=== PATIENT | female | born 1975 | race Two or more races ===

== ENCOUNTER 2018-12-25 11:09 | Emergency (ER) | payer MEDICAID ==
[~2018-12-25] VITALS: Ht 167.6 cm; Wt 82.6 kg
[~2018-12-25 11:09] MED LIST: ALBUAER3 IN; ALBUPOW26 XX; AZITTAB11 PO; PRED-188 PO; PREN-129 PO
[2018-12-25 11:30] VITALS: BP 120/75
[2018-12-25] MEDS ORDERED: HYDROcodone-ACET 7.5/325MG TAB PO ONE (13:00)
== END 2018-12-25 13:47 | disposition home or self-care (01) ==
LOC: ER 11:09
DX: S22.41XA Multiple fractures of ribs, right side, initial encounter for closed fracture (principal); J45.909 Unspecified asthma, uncomplicated; K21.9 Gastro-esophageal reflux disease without esophagitis; E78.5 Hyperlipidemia, unspecified; Z88.8 Allergy status to other drugs, medicaments and biological substances; Z79.899 Other long term (current) drug therapy; V49.59XA Passenger injured in collision with other motor vehicles in traffic accident, initial encounter; Y93.89 Activity, other specified; Y99.8 Other external cause status; Y92.89 Other specified places as the place of occurrence of the external cause
CPT/HCPCS: 71101

== ENCOUNTER 2020-11-11 22:01 | Emergency (ER) | payer MEDICAID ==
[~2020-11-11] VITALS: Ht 167.6 cm; Wt 85.7 kg
[2020-11-11 23:00] VITALS: BP 131/85
== END 2020-11-11 23:59 | disposition home or self-care (01) ==
LOC: ER 22:06
DX: U07.1 COVID-19 (principal); M54.9 Dorsalgia, unspecified; R53.1 Weakness; J45.909 Unspecified asthma, uncomplicated; E78.5 Hyperlipidemia, unspecified
CPT/HCPCS: 36415; 71045; 87426

== ENCOUNTER → 2023-08-24 | Outpatient (CLI) | payer MEDICAID ==
[2023-08-24 09:25] LABS: Urine Bacteria FEW /hpf (None Seen); Urine Blood TRACE /uL (Negative); Urine Clarity Turbid (Clear); Urine Color Light-Yellow (Yellow); Urine Mucus FEW (None Seen); Urine Protein, UAD Negative (Negative); Urine Specific Gravity 1.016 (1.001-1.035); Urine Urobilinogen Normal (Negative); Urine WBC 1 /hpf (0 - 5)
== END | disposition home or self-care (01) ==
LOC: LAB 09:14
PROVIDERS: ATTEND Internal Medicine
DX: R82.90 Unspecified abnormal findings in urine (principal)
CPT/HCPCS: 81001

== ENCOUNTER → 2023-12-01 | Outpatient (CLI) | payer MEDICAID ==
[2023-12-01 08:37] LABS: Urine Bacteria None Seen /hpf (None Seen)
[2023-12-01 08:45] LABS: Basophils # (auto) 0 10 ^3/uL (0-0.2); Basophils % (auto) 0.5 % (0.0-2.0); Eosinophils # (auto) 0.3 10 ^3/uL (0-0.8); Eosinophils % (auto) 3.5 % (0.0-7.0); Hematocrit 36.5 % (36.0-46.0); Hemoglobin 12.6 g/dL (12.2-16.2); Lymphocytes % (auto) 40.1 % (10.0-50.0); Mean Corpuscular Hemoglobin 31.5 pg (28.0-32.0); Mean Corpuscular Hgb Conc. 34.4 g/dL (32.0-36.0); Mean Corpuscular Volume 91.6 fL (80.0-100.0); Monocytes # (auto) 0.5 10 ^3/uL (0-1.3); Monocytes % (auto) 7.2 % (0.0-12.0); Neutrophils # (auto) 3.6 10 ^3/uL (1.6-8.6); Neutrophils % (auto) 48.7 % (37.0-80.0); Nucleated Red Blood Cells % 0.1 %; Platelet Count (auto) 326 10^3/uL (140-450); Red Blood Cells 3.99 10^6/uL (4.0-5.20); Red Cell Distribution Width 13.3 % (11.8-14.3); White Blood Cell 7.4 10^3/uL (4.4-10.8)
[2023-12-01 09:10] LABS: Alanine Aminotransferase 40 U/L (7-40); Albumin 4.2 g/dL (3.2-4.8); Alkaline Phosphatase 107 U/L (46-116); Anion Gap 6 (5-15); Aspartate Aminotransferase 19 U/L (13-40); Blood Urea Nitrogen 10 mg/dL (9-23); Calcium 9.4 mg/dL (8.7-10.4); Carbon Dioxide 27 mmol/L (20-30); Chloride 107 mmol/L (98-107); Cholesterol 253 mg/dL (< 200); Glucose 106 mg/dL (74-106); Potassium 3.9 mmol/L (3.5-5.1); Sodium 140 mmol/L (136-145); Triglycerides 500 mg/dL (< 150)
[2023-12-01 09:11] LABS: Bilirubin, Total 0.7 mg/dL (0.2-1.0); HDL Cholesterol 34 mg/dL (40-59); Total Protein 7.3 g/dL (5.7-8.2)
[2023-12-01 09:14] LABS: Urine Blood TRACE /uL (Negative); Urine Clarity Turbid (Clear); Urine Color Light-Yellow (Yellow); Urine Protein, UAD Negative (Negative); Urine Specific Gravity 1.015 (1.001-1.035); Urine Urobilinogen Normal (Negative); Urine WBC 1 /hpf (0 - 5); Urine pH 5.5 (5.0-9.0)
== END | disposition home or self-care (01) ==
LOC: LAB 08:29
PROVIDERS: ATTEND Internal Medicine
DX: Z00.01 Encounter for general adult medical examination with abnormal findings (principal); E55.9 Vitamin D deficiency, unspecified; R73.03 Prediabetes; R82.90 Unspecified abnormal findings in urine; E78.2 Mixed hyperlipidemia
CPT/HCPCS: 36415; 80053; 80061; 81001; 82306; 83036; 84439; 84443; 85025

== ENCOUNTER → 2024-02-02 | Outpatient (CLI) | payer MEDICAID ==
[2024-02-02 11:10] LABS: Urine Bacteria None Seen /hpf (None Seen)
[2024-02-02 11:36] LABS: Urine Blood Negative /uL (Negative); Urine Clarity Clear (Clear); Urine Color Light-Yellow (Yellow); Urine Protein, UAD Negative (Negative); Urine Specific Gravity 1.012 (1.001-1.035); Urine Urobilinogen Normal (Negative); Urine WBC 1 /hpf (0 - 5)
== END | disposition home or self-care (01) ==
LOC: LAB 11:08
PROVIDERS: ATTEND Internal Medicine
DX: N39.0 Urinary tract infection, site not specified (principal)
CPT/HCPCS: 81001; 87086

== ENCOUNTER → 2024-05-07 | Outpatient (CLI) | payer MEDICAID ==
[2024-05-07 09:22] LABS: Basophils # (auto) 0 10 ^3/uL (0-0.2); Basophils % (auto) 0.4 % (0.0-2.0); Eosinophils # (auto) 0.5 10 ^3/uL (0-0.8); Eosinophils % (auto) 5.1 % (0.0-7.0); Hematocrit 36.6 % (36.0-46.0); Hemoglobin 12.1 g/dL (12.2-16.2); Lymphocytes % (auto) 32.7 % (10.0-50.0); Mean Corpuscular Hemoglobin 30.4 pg (28.0-32.0); Mean Corpuscular Hgb Conc. 33.1 g/dL (32.0-36.0); Mean Corpuscular Volume 91.9 fL (80.0-100.0); Monocytes # (auto) 0.6 10 ^3/uL (0-1.3); Neutrophils % (auto) 54.8 % (37.0-80.0); Platelet Count (auto) 360 10^3/uL (140-450); Red Blood Cells 3.98 10^6/uL (4.0-5.20); Red Cell Distribution Width 13.2 % (11.8-14.3); White Blood Cell 9.2 10^3/uL (4.4-10.8)
[2024-05-07 09:32] LABS: Alanine Aminotransferase 29 U/L (7-40); Albumin 4.3 g/dL (3.2-4.8); Alkaline Phosphatase 98 U/L (46-116); Anion Gap 10 (5-15); BUN/Creatinine Ratio 15.6 (10.0-20.0); Blood Urea Nitrogen 12 mg/dL (9-23); Calcium 9.3 mg/dL (8.7-10.4); Carbon Dioxide 22 mmol/L (20-31); Potassium 4.1 mmol/L (3.5-5.1); Sodium 139 mmol/L (136-145)
[2024-05-07 09:33] LABS: Bilirubin, Total 0.4 mg/dL (0.2-1.0); Cholesterol 160 mg/dL (< 200); Total Protein 7.1 g/dL (5.7-8.2)
[2024-05-07 09:36] LABS: Aspartate Aminotransferase < 8 U/L (13-40); Chloride 107 mmol/L (98-107); Glucose 136 mg/dL (74-106); HDL Cholesterol 38 mg/dL (40-59); Triglycerides 269 mg/dL (< 150)
[2024-05-07 09:45] LABS: LDL Cholesterol 87 mg/dL (< 100)
[2024-05-07 09:47] LABS: Urine Bacteria FEW /hpf (None Seen); Urine Blood 2+ /uL (Negative); Urine Mucus FEW (None Seen); Urine Protein, UAD TRACE (Negative); Urine Specific Gravity 1.027 (1.001-1.035); Urine Squamous Epithelial Cell FEW /hpf (<5); Urine Urobilinogen Normal (Negative); Urine WBC 649 /HPF (0-5); Urine WBC Clumps PRESENT /hpf (None Seen); Urine pH 5.5 (5.0-9.0)
[2024-05-07 09:53] LABS: Urine Clarity Cloudy (Clear); Urine Color Yellow (Yellow)
== END | disposition home or self-care (01) ==
LOC: LAB 08:21
PROVIDERS: ATTEND Internal Medicine
DX: K21.9 Gastro-esophageal reflux disease without esophagitis (principal); E78.00 Pure hypercholesterolemia, unspecified; R73.03 Prediabetes; Z00.00 Encounter for general adult medical examination without abnormal findings
CPT/HCPCS: 36415; 80053; 80061; 81001; 83036; 84439; 84443; 85025

== ENCOUNTER → 2024-08-07 | Outpatient (CLI) | payer MEDICAID ==
[2024-08-07 08:59] LABS: Basophils # (auto) 0 10 ^3/uL (0-0.2); Basophils % (auto) 0.6 % (0.0-2.0); Eosinophils # (auto) 0.5 10 ^3/uL (0-0.8); Eosinophils % (auto) 6.5 % (0.0-7.0); Hemoglobin 12.7 g/dL (12.2-16.2); Lymphocytes # (auto) 2.7 10 ^3/uL (0.4-5.4); Lymphocytes % (auto) 32.7 % (10.0-50.0); Mean Corpuscular Hemoglobin 30.8 pg (28.0-32.0); Mean Corpuscular Hgb Conc. 34.2 g/dL (32.0-36.0); Mean Corpuscular Volume 90.1 fL (80.0-100.0); Monocytes # (auto) 0.5 10 ^3/uL (0-1.3); Monocytes % (auto) 5.9 % (0.0-12.0); Neutrophils # (auto) 4.5 10 ^3/uL (1.6-8.6); Neutrophils % (auto) 54.3 % (37.0-80.0); Platelet Count (auto) 362 10^3/uL (140-450); Red Blood Cells 4.11 10^6/uL (4.0-5.20); Red Cell Distribution Width 13.4 % (11.8-14.3); White Blood Cell 8.3 10^3/uL (4.4-10.8)
[2024-08-07 09:12] LABS: Anion Gap 13 (5-15); Carbon Dioxide 23 mmol/L (20-31); Chloride 102 mmol/L (98-107); Potassium 3.8 mmol/L (3.5-5.1); Sodium 138 mmol/L (136-145)
[2024-08-07 09:13] LABS: Calcium 9.4 mg/dL (8.7-10.4)
[2024-08-07 09:18] LABS: BUN/Creatinine Ratio 12.3 (10.0-20.0); Blood Urea Nitrogen 9 mg/dL (9-23)
[2024-08-07 09:23] LABS: Cholesterol 202 mg/dL (< 200); Glucose 125 mg/dL (74-106); HDL Cholesterol 29 mg/dL (40-59); Triglycerides 646 mg/dL (< 150)
== END | disposition home or self-care (01) ==
LOC: LAB 08:23
PROVIDERS: ATTEND Internal Medicine
DX: E78.2 Mixed hyperlipidemia (principal); D64.9 Anemia, unspecified; R73.03 Prediabetes
CPT/HCPCS: 36415; 80048; 80061; 83036; 85025

== ENCOUNTER 2024-08-30 08:12 | Outpatient (CLI) | payer MEDICAID ==
[2024-08-30 08:59] LABS: Alanine Aminotransferase 25 U/L (7-40); Albumin 4.4 g/dL (3.2-4.8); Alkaline Phosphatase 97 U/L (46-116); Anion Gap 11 (5-15); Aspartate Aminotransferase 17 U/L (<34); BUN/Creatinine Ratio 13.4 (10.0-20.0); Blood Urea Nitrogen 11 mg/dL (9-23); Calcium 9.7 mg/dL (8.7-10.4); Carbon Dioxide 25 mmol/L (20-31); Chloride 105 mmol/L (98-107); Creatine Kinase IFCC 122 U/L (34-145); Sodium 141 mmol/L (136-145); Total Protein 7.4 g/dL (5.7-8.2)
[2024-08-30 09:00] LABS: Bilirubin, Total 0.6 mg/dL (0.2-1.0)
[2024-08-30 09:01] LABS: Glucose 120 mg/dL (74-106)
== END 2024-08-30 17:00 | disposition home or self-care (01) ==
LOC: LAB 08:12
PROVIDERS: ATTEND Internal Medicine
DX: E78.2 Mixed hyperlipidemia (principal)
CPT/HCPCS: 36415; 80053; 82550

== ENCOUNTER 2024-10-15 11:36 | Outpatient (CLI) | payer MEDICAID ==
[2024-10-15 12:02] LABS: Urine Protein, UAD Negative (Negative)
== END 2024-10-15 17:00 | disposition home or self-care (01) ==
LOC: LAB 11:36
PROVIDERS: ATTEND Internal Medicine
DX: R82.90 Unspecified abnormal findings in urine (principal)
CPT/HCPCS: 81001

== ENCOUNTER 2024-12-30 02:06 | Emergency (ER) | payer MEDICAID ==
[~2024-12-30] VITALS: Ht 167.6 cm; Wt 98.0 kg
[2024-12-30 03:19] LABS: Nucleated Red Blood Cells % 0.1 %
[2024-12-30 03:21] LABS: Hematocrit 37.5 % (36.0-46.0); Hemoglobin 12.7 g/dL (12.2-16.2); Mean Corpuscular Hemoglobin 30.6 pg (28.0-32.0); Mean Corpuscular Volume 90.7 fL (80.0-100.0)
--- NOTE | 2024-12-30 03:26 | ED.PDOC ---
History of Present Illness HPI Comments 49-year-old female who came to ER for shortness of breath. In the past few days patient has been experiencing shortness of breath, associated with numbness and tingling of her extremities. Patient feels very anxious. And shows a 51 Chief Complaint: Shortness of Breath Time Seen by MD: 03:26 Primary Care Provider: NIKKI Sullivan Notes: Nurses Notes Allergies: Coded Allergies: Aspirin (Verified Allergy, Intermediate, SWELLING/RASH, 12/25/18) Uncoded Allergies: ASA (Allergy, Unknown, 05/04/19) Home Meds Active Scripts Prednisone (PREDNISONE) 20 Mg Tb, 60 MG PO DAILY, #15 TAB Prov:WARREN HYATT N.P. 03/16/13 Albuterol Sulfate (VENTOLIN MDI) 90 Mcg Ih, 2 PUFF IN Q4HP PRN, #1 AER Prov:WARREN HYATT N.P. 03/16/13 Azithromycin (Zithromax Z-Joshua) 1 Tab Tab, 2 TAB PO ONCE, #6 TAB take two tablets once then take one tablet every day 2 thru 5 thereafter Prov:WARREN HYATT N.P. 03/16/13 Reported Medications Albuterol (Albuterol) Pow, 1 XX PRN 07/11/12 Vit W/ Ferrous Fumara () Tab, 1 TAB PO DAILY 07/11/12 Information Source: Patient Mode of Arrival: Ambulatory Severity: Moderate Timing: Days Duration: Intermittent Past Medical History PAST MEDICAL HISTORY: Asthma, GERD, High Lipids Surgical History: Hernia Repair [employer] History: No Pertinent [employer] History Family History Family History: Reviewed,noncontributory to illness, No family hx of Cancer, No family hx of DM, No family hx of Heart jaden, No family hx of HTN, No family hx ofKidney jaden, No family hx of Liver jaden, No family hx of Lung jaden, No family hx of Stroke Social History Smoker: Non-Smoker Alcohol: Rarely Drugs: Denies Drug Use Lives In: Home Constitutional: denies: chills, diaphoresis, fatigue, fever, malaise, sweats, weakness, others EENTM: denies: blurred vision, double vision, ear bleeding, ear discharge, ear drainage, ear pain, ear ringing, eye pain, eye redness, hearing loss, mouth pain, mouth swelling, nasal discharge, nose bleeding, nose congestion, nose pain, photophobia, tearing, throat pain, throat swelling, voice changes, others Respiratory: reports: shortness of breath; denies: cough, hemoptysis, orthopnea, SOB at rest, SOB with excertion, stridor, wheezing, others Cardiovascular: denies: chest pain, dizzy spells, diaphoresis, Dyspnea on exertion, edema, irregular heart beat, left arm pain, lightheadedness, palpitations, PND, syncope, others Gastrointestinal: denies: abdomen distended, abdominal pain, blood streaked bowels, constipated, diarrhea, dysphagia, difficulty swallowing, hematemesis, melena, nausea, poor appetite, poor fluid intake, rectal bleeding, rectal pain, vomiting, others Genitourinary: denies: abnormal vagina bleeding, burning, dyspareunia, dysuria, flank pain, frequency, hematuria, incontinence, pain, , vagina discharge, urgency, others Neurological: reports: numbness, tingling; denies: dizziness, fainting, headache, left sided numbness, left sided weakness, paresthesia, pre-existing deficit, right sided numbness, right sided weakness, seizure, speech problems, tremors, weakness, others Musculoskeletal: denies: back pain, gout, joint pain, joint swelling, muscle pain, muscle stiffness, neck pain, others Integumetry: denies: bruises, change in color, change in hair/nails, dryness, laceration, lesions, lumps, rash, wounds, others Allergic/Immunocompromised: denies: Difficulty Healing, Frequent Infections, Hives, Itching, others Hematologic/Lymphatic: denies: anemia, blood clots, easy bleeding, easy bruising, swollen glands, others Endocrine: denies: excessive hunger, excessive sweating, excessive thirst, excessive urination, flushing, intolerance to cold, intolerance to heat, unexplained weight gain, unexplained weight loss, others Psychiatric: reports: anxiety; denies: bipolar disorder, depression, hopeless, panic disorder, schizophrenia, sleepless, suicidal, others Physical Exam General Appearance: No Apparent Distress, Normal HEENT: Normal ENT Inspection, Pharynx Normal, TMs Normal Neck: Full Range of Motion, Non-Tender, Normal, Normal Inspection Respiratory: Chest Non-Tender, Lungs Clear, No Accessory Muscle Use, No Respiratory Distress, Normal Breath Sounds Cardiovascular: No Edema, No JVD, No Murmur, No Gallop, Normal Peripheral Pulses, Regular Rate/Rhythm Breast Exam: Deferred Gastrointestinal: No Organomegaly, Non Tender, No Pulsatile Mass, Normal Bowel Sounds, Soft Genitalia: Deferred Pelvic: Deferred Rectal: Deferred Extremities: No calf tenderness, Normal capillary refill, Normal inspection, Normal range of motion, Non-tender, No pedal edema Musculoskeletal : Apperance: Normal Neurologic: Alert, director of reimbursement II-XII nml as Tested, No Motor Deficits, Normal Affect, Normal Mood, No Sensory Deficits Cerebellar Function: Normal Reflexes: Normal Skin: Dry, Normal Color, Warm Lymphatic: No Adenopathy Was a procedure done? Was a procedure done?: No Differential Dx Considerations may include: Anemia, electrolyte imbalance, pneumonia, anxiety, X-Ray, Labs, Meds, VS Vital Signs Date Time Temp Pulse Resp B/P (MAP) Pulse Ox O2 Delivery O2 Flow Rate FiO2 12/30/24 02:07 96.6 65 18 137/86 98 96.6 Lab Test 12/30/24 04:04 12/30/24 03:12 Range/Units Troponin I High Sensitivity Pending < 3 L </=34 ng/L White Blood Count 7.8 4.4-10.8 10^3/uL Red Blood Count 4.13 4.0-5.20 10^6/uL Hemoglobin 12.7 12.2-16.2 g/dL Hematocrit 37.5 36.0-46.0 % Mean Corpuscular Volume 90.7 80.0-100.0 fL Mean Corpuscular Hemoglobin 30.6 28.0-32.0 pg Mean Corpuscular Hemoglobin Concent 33.8 32.0-36.0 g/dL Red Cell Distribution Width 13.1 11.8-14.3 % Platelet Count 450 140-450 10^3/uL Mean Platelet Volume 7.0 6.9-10.8 fL Neutrophils (%) (Auto) 41.1 37.0-80.0 % Lymphocytes (%) (Auto) 46.8 10.0-50.0 % Monocytes (%) (Auto) 6.5 0.0-12.0 % Eosinophils (%) (Auto) 5.0 0.0-7.0 % Basophils (%) (Auto) 0.6 0.0-2.0 % Neutrophils # (Auto) 3.2 1.6-8.6 10 ^3/uL Lymphocytes # (Auto) 3.6 0.4-5.4 10 ^3/uL Monocytes # (Auto) 0.5 0-1.3 10 ^3/uL Eosinophils # (Auto) 0.4 0-0.8 10 ^3/uL Basophils # (Auto) 0 0-0.2 10 ^3/uL Nucleated Red Blood Cells 0.1 % Sodium Level 141 136-145 mmol/L Potassium Level 4.1 3.5-5.1 mmol/L Chloride Level 106 98-107 mmol/L Carbon Dioxide Level 26 20-31 mmol/L Anion Gap 9 5-15 Blood Urea Nitrogen 9 9-23 mg/dL Creatinine 0.77 0.550-1.02 mg/dL Glomerular Filtration Rate Calc 96 >90 mL/min BUN/Creatinine Ratio 11.7 10.0-20.0 Serum Glucose 106 74-106 mg/dL Calcium Level 9.3 8.7-10.4 mg/dL Total Bilirubin 0.5 0.2-1.0 mg/dL Aspartate Amino Transferase (AST) 29 13-40 U/L Alanine Aminotransferase (ALT) 51 H 7-40 U/L Alkaline Phosphatase 115 46-116 U/L B-Type Natriuretic Peptide 5.69 0-100 pg/mL Total Protein 7.8 5.7-8.2 g/dL Albumin 4.3 3.2-4.8 g/dL CHEST RADIOGRAPH Indication: SOB Technique: Single frontal view of the chest was obtained COMPARISON: CHEST PORTABLE on DOS: 11/11/20 FINDINGS: Lines and Tubes: None Lungs: Clear Pleura: No effusion. No pneumothorax. Cardiomediastinal contours: Unremarkable Bones: Unremarkable IMPRESSION: 1. No acute disease. Time of 1ST Reevaluation: 03:24 Reevaluation 1ST: Unchanged Patient Education/Counseling: Diagnosis, Treatment Family Education/Counseling: No Family Present SEPSIS Sepsis Screen Date sepsis recognized/suspect: Dec 30, 2024 Time Sepsis recognized/suspect: 021 Recent Procedure: No On Antibiotic Therapy: No Respiratory Rate >20: No Heart Rate >90: No Temp<36 C (96.8 F) or >38.3 C: No SBP <90 or MAP <65 mmHG: No New Acute Mental Status Change: No Is the patient on CPAP, BIPAP,: No Physician Orders Electrocardigram (12/30/24 02:53) Troponin-I Hs (12/30/24 03:53) Troponin-I Hs (12/30/24 05:53) Chest Xray 1 View (12/30/24 02:53) Vital Signs Date Time Temp Pulse Resp B/P (MAP) Pulse Ox O2 Delivery O2 Flow Rate FiO2 12/30/24 02:07 96.6 65 18 137/86 98 96.6 Laboratory Tests Test 12/30/24 03:12 White Blood Count 7.8 10^3/uL (4.4-10.8) Departure 1 Departure Time of Disposition: 04:44 Impression: Primary Impression: Dyspnea Additional Impression: Paresthesia Disposition: 01 HOME / SELF CARE / HOMELESS Condition: Stable Discharged With: Self Critical Care Note Critical Care Time?: No Stability Stability form required: No Heart Score Heart Score: Heart Score Response (Comments) Value History N/A 0 EKG N/A 0 Age N/A 0 Risk Factors N/A 0 Troponin N/A 0 Total 0 I personally scribed for RAFAL SILVEIRA MD ([email or web address]) on 12/30/24 at 03:26. Electronically submitted by Jerome Melgar ([email or web address]). I personally scribed for RAFAL SILVEIRA MD ([email or web address]) on 12/30/24 at 04:05. Electronically submitted by Jerome Melgar ([email or web address]). RAFAL SILVEIRA MD Dec 30, 2024 03:26
[2024-12-30 03:48] LABS: Albumin 4.3 g/dL (3.2-4.8); Alkaline Phosphatase 115 U/L (46-116); Anion Gap 9 (5-15); BUN/Creatinine Ratio 11.7 (10.0-20.0); Bilirubin, Total 0.5 mg/dL (0.2-1.0); Blood Urea Nitrogen 9 mg/dL (9-23); Calcium 9.3 mg/dL (8.7-10.4); Carbon Dioxide 26 mmol/L (20-31); Chloride 106 mmol/L (98-107); Potassium 4.1 mmol/L (3.5-5.1); Sodium 141 mmol/L (136-145); Total Protein 7.8 g/dL (5.7-8.2)
[2024-12-30 04:29] LABS: Alanine Aminotransferase 51 U/L (7-40); Glucose 106 mg/dL (74-106)
[2024-12-30 04:55] VITALS: BP 115/79; PULSE 79; RESP 19; TEMP 98.6; O2SAT 98
--- NOTE | 2025-01-01 00:22 | ECG ---
[facility] Test Date: 2024-12-30 Test Time: 02:23:35 Pat Name: STELLA GOMEZ Department: ED Room: Gender: F Rope Tier: TORI : 1975 Requested By: RAFAL SILVEIRA Order Number: [id number] Reading MD: Measurements Intervals [place] Rate: 61 P: 64 MD: 186 QRS: 63 QRSD: 101 T: 30 QT: 428 QTc: 431 Interpretive Statements Sinus rhythm Nonspecific T abnormalities, anterior leads Please click the below link to view image of tracing.
== END 2024-12-30 04:55 | disposition home or self-care (01) ==
LOC: ER 02:06
DX: R06.00 Dyspnea, unspecified (principal); R20.2 Paresthesia of skin; R20.0 Anesthesia of skin; K21.9 Gastro-esophageal reflux disease without esophagitis; E78.5 Hyperlipidemia, unspecified; J45.909 Unspecified asthma, uncomplicated; Z88.6 Allergy status to analgesic agent; Z98.890 Other specified postprocedural states
CPT/HCPCS: 36415; 71045; 80053; 83880; 84484; 85025; 93005

== ENCOUNTER 2025-02-06 07:43 | Outpatient (CLI) | payer MEDICAID ==
[2025-02-06 08:02] LABS: Hematocrit 36.1 % (36.0-46.0); Hemoglobin 12.4 g/dL (12.2-16.2); Mean Corpuscular Hemoglobin 30.9 pg (28.0-32.0); Mean Corpuscular Volume 90.1 fL (80.0-100.0); Nucleated Red Blood Cells % 0.0 %
[2025-02-06 08:43] LABS: Alanine Aminotransferase 26 U/L (7-40); Albumin 4.0 g/dL (3.2-4.8); Alkaline Phosphatase 108 U/L (46-116); Anion Gap 9 (5-15); BUN/Creatinine Ratio 12.8 (10.0-20.0); Bilirubin, Total 0.3 mg/dL (0.2-1.0); Blood Urea Nitrogen 10 mg/dL (9-23); Calcium 9.1 mg/dL (8.7-10.4); Carbon Dioxide 26 mmol/L (20-31); Chloride 106 mmol/L (98-107); Cholesterol 157 mg/dL (< 200); Potassium 4.2 mmol/L (3.5-5.1); Sodium 141 mmol/L (136-145); Total Protein 7.4 g/dL (5.7-8.2)
[2025-02-06 08:47] LABS: Glucose 131 mg/dL (74-106); HDL Cholesterol 34 mg/dL (40-59); Triglycerides 330 mg/dL (< 150)
== END 2025-02-06 17:00 | disposition home or self-care (01) ==
LOC: LAB 07:43
PROVIDERS: ATTEND Internal Medicine
DX: E78.2 Mixed hyperlipidemia (principal); D64.9 Anemia, unspecified; R73.03 Prediabetes; R79.89 Other specified abnormal findings of blood chemistry; R94.4 Abnormal results of kidney function studies; Z13.1 Encounter for screening for diabetes mellitus; Z00.01 Encounter for general adult medical examination with abnormal findings
CPT/HCPCS: 36415; 80053; 80061; 83036; 84439; 84443; 85025